=== PATIENT | male | born 1975 | race Caucasian/White ===

== ENCOUNTER 2020-12-05 16:54 | Emergency (ER) | payer BC ==
[2020-12-05] MEDS ORDERED: IBUPROFEN600 MG PO (18:22)
[2020-12-05] MEDS ORDERED: CLEOCIN HCL300 MG PO (18:22)
[2020-12-05] MEDS ORDERED: BACTROBAN OINT22 GM EXT (18:22)
== END 2020-12-05 18:50 | disposition home or self-care (01) ==
LOC: ER1 16:54
DX: S51.812A Laceration without foreign body of left forearm, initial encounter (principal); Z23 Encounter for immunization; Z88.0 Allergy status to penicillin; W26.8XXA Contact with other sharp object(s), not elsewhere classified, initial encounter
CPT/HCPCS: 12002; 90471; 90715; 99283